=== PATIENT | male | born 1970 | race Caucasian/White ===

== ENCOUNTER 2017-12-30 14:00 | Emergency (ER) | payer BC ==
--- NOTE | 2017-12-30 14:13 | UC ---
Throat Pain/Nasal Sylvester HPI - HPI Summary HPI Summary: 47 y/o male presents to the urgent care c/o sore throat and fever for the past 2 days. Pain w/ swallowing is 9/10, associated w/ chills and body aches. Pt took Ibuprofen 400mg PO this morning at 0900am to alleviate symptoms. Pt states his co-worker has similar symptoms. Pt denies cough, SOB, chest pain, abdominal pin, N/V/D. - History of Current Complaint Stated Complaint: FEVER,SORE THROAT Time Seen by Provider: 12/30/17 14:11 Hx Obtained From: Patient Onset/Duration: Gradual Onset, Lasting Days - 2 days, Still Present, Worse Since - today Severity: Severe Pain Intensity: 9 Pain Scale Used: 0-10 Numeric Cough: None Associated Signs & Symptoms: Positive: Dysphagia, Fever - Epiglottits Risk Factors Epiglottis Risk Factors: Negative - Allergies/Home Medications Allergies/Adverse Reactions: Allergies Allergy/AdvReac Type Severity Reaction Status Date / Time Penicillins Allergy Unknown Verified 12/30/17 14:18 Reaction Details sumatriptan [From Imitrex] Allergy Palpitation Verified 12/30/17 14:18 s some statins Allergy feel like Uncoded 08/19/17 17:26 I'm on fire PMH/Surg Hx/FS Hx/Imm Hx Previously Healthy: Yes Endocrine History: Diabetes, Dyslipidemia - diet controlled Cardiovascular History: Hypertension - diet controlled - Surgical History Surgical History: Yes Surgery Procedure, Year, and Place: left hand 2012 - Family History Known Family History: Positive: Hypertension, Diabetes - Social History Occupation: Employed Full-time Lives: With Family Alcohol Use: None Substance Use Type: None Smoking Status (MU): Never Smoked Tobacco - Immunization History Most Recent Influenza Vaccination: none Review of Systems Constitutional: Fever, Chills, Other - body aches Skin: Negative Eyes: Negative ENT: Sore Throat Respiratory: Negative Cardiovascular: Negative Gastrointestinal: Negative Genitourinary: Negative Motor: Negative Neurovascular: Negative Musculoskeletal: Negative Neurological: Negative Psychological: Negative Is Patient Immunocompromised?: No All Other Systems Reviewed And Are Negative: Yes Physical Exam - Summary Physical Exam Summary: VITAL SIGNS: Reviewed. GENERAL: Patient is a well developed and nourished who is sitting comfortable in the examining table. Patient is not in any acute respiratory distress. HEAD AND FACE: No signs of trauma. No ecchymosis, hematomas or skull depressions. No sinus tenderness. EYES: PERRLA, EOMI x 2, No injected conjunctiva, no nystagmus. No photophobia. EARS: Hearing grossly intact. Ear canals and tympanic membranes are within normal limits. MOUTH: Positive pharynx with moderate erythema, exudates, palatal petechiae. B/ L tonsillar enlargement with mild exudate. Uvula w/ erythema , swollen and in midline. NECK: Supple, trachea is midline, Positive anterior cervical lymphadenopathy, no JVD, no carotid bruit, no c-spine tenderness, neck with full ROM. No meningeal signs, no Kernig's or brudzinskis signs. CHEST: Symmetric, no tenderness at palpation LUNGS: Clear to auscultation bilaterally. No wheezing or crackles. CVS: Regular rate and rhythm, S1 and S2 present, no murmurs or gallops appreciated. ABDOMEN: Soft, non-tender. No signs of distention. No rebound no guarding, and no masses palpated. Bowel sounds are normal. EXTREMITIES: FROM in all major joints, no edema, no cyanosis or clubbing. NEURO: Alert and oriented x 3. No acute neurological deficits. Speech is normal and follows commands. SKIN: Dry and warm Triage Information Reviewed: Yes Throat Pain/Nasal Course/Dx - Course Course Of Treatment: 47 y/o male presents to the urgent care c/o sore throat and fever for the past 2 days. Pain w/ swallowing is 9/10, associated w/ chills and body aches. Pt took Ibuprofen 400mg PO this morning at 0900am to alleviate symptoms. Pt states his co-worker has similar symptoms. Pt denies cough, SOB, chest pain, abdominal pin, N/V/D. Hx obtained. Pt febrile w/ pharyngitis and uvulitis on examination. Pt given Ibuprofen PO at the clinic for fever. Rapid strep ordered: result: positive. Strep pharyngitis. Pt PCN allergic. Rx Z-dustin PO , Prednisone PO and Ibuprofen PO for pain and swelling. PT Advised on hand washing to avoid spreading. Also advised to rest, eat well and avoid strenuous exercise. If symptoms do not improve or worsen advised to return to the urgent care or f/u with her PCP for further evaluation and treatment. PT understood and agreed w/ plan of care. - Differential Dx/Diagnosis Differential Diagnosis/HQI/PQRI: Laryngitis, Mononucleosis, Peritonsillar Abscess, Pharyngitis, Tonsillitis, URI Provider Diagnoses: 1- Strep pharyngitis. 2-Uvulitis Discharge - Discharge Plan Condition: Stable Disposition: HOME Prescriptions: Azithromyxin DUSTIN (NF) [Z-Dustin (Zithromax) 250 mg tabs #6] 2 tab PO .TODAY, THEN 1 DAILY #6 tab Ibuprofen TAB* [Motrin TAB* 800 MG] 800 mg PO Q6H PRN #20 tab PRN Reason: Sore Throat predniSONE TAB* [Deltasone TAB*] 20 mg PO DAILY #11 tab Patient Education Materials: Strep Throat (ED), Uvulitis (ED) Forms: *Work Release Referrals: Dayday Barriga MD [Primary Care Provider] - 3 Days Additional Instructions: 1- Please take the full course of the antibiotic to avoid resistance. Take Prednisone PO as directed to decrease swelling 2-Please take ibuprofen PO q6-8hrs prn as instructed after meals to alleviate pain and swelling. Increase fluid intake, eat well, rest and avoid strenuous exercise 3-If symptoms do not improve or worsen please return to the urgent care or f/u with your PCP in 2-3 days for further evaluation and treatment.
[2017-12-30 14:16] VITALS: BP 131/81
[2017-12-30] MEDS ORDERED: Ibuprofen TAB* 400 MG PO ONE (14:18)
== END 2017-12-30 14:48 | disposition home or self-care (01) ==
LOC: UCCORT 14:00
DX: J02.0 Streptococcal pharyngitis (principal); K12.2 Cellulitis and abscess of mouth; Z88.0 Allergy status to penicillin; Z88.8 Allergy status to other drugs, medicaments and biological substances
CPT/HCPCS: 87651; 99212; A9270-GY; G0463